=== PATIENT | female | born 1940 | race Caucasian/White ===

== ENCOUNTER → 2017-10-07 | Outpatient (CLI) | payer MEDICARE, OTHER ==
--- NOTE | 2017-10-07 13:30 | RADIOLOGY REPORT (SQ) ---
EXAM DESCRIPTION: U/S RETROPERITON (RENAL/AORTA) COMPLETED DATE/TIME: 10/07/2017 12:15 pm REASON FOR STUDY: N28.1 CYST OF KIDNEY, ACQUIRED N28.1 CYST OF KIDNEY, ACQUIRED COMPARISON: None. TECHNIQUE: Dynamic and static grayscale images acquired of the kidneys and bladder and recorded on P ACS. Additional selected color Doppler and spectral images recorded. LIMITATIONS: None. FINDINGS: RIGHT KIDNEY: Normal size, 11 cm in length. Normal echogenicity. No hydronephrosis. No dayan cifications. There is a 5 cm solid mass along the right lower pole kidney worrisome for primary tumor. LEFT KIDNEY: Normal size, 10 cm in length. Normal echogenicity. No solid or suspicious masses. No hy dronephrosis. No calcifications. BLADDER: No masses. OTHER FINDINGS: No other significant finding. IMPRESSION: 5 cm solid mass right lower pole kidney worrisome for primary tumor. No hydronephrosis or urinary calculi. COMMENT: Report called to Dr. Alford's nurse, Ha[place], 1320 hours 10/07/2017 TECHNICAL DOCUMENTATION: JOB ID: [id number] [employer]- All Rights Reserved
== END ==
LOC: RAD 11:51
PROVIDERS: ATTEND Internal Medicine
DX: N28.1 Cyst of kidney, acquired (principal)
CPT/HCPCS: 76770

== ENCOUNTER → 2017-11-22 | Outpatient (CLI) | payer MEDICARE, OTHER ==
--- NOTE | 2017-11-22 12:29 | RADIOLOGY REPORT (SQ) ---
EXAM DESCRIPTION: CT ABD/PELVIS NO ORAL OR IV COMPLETED DATE/TIME: 11/22/2017 11:17 am REASON FOR STUDY: R93.8 ABNORMAL FINDINGS ON DIAGNOSTIC IMAGING OF BODY STRUCTURES R93.8 ABNORMAL F INDINGS ON DIAGNOSTIC IMAGING OF BODY STRUCT COMPARISON: Bilateral renal ultrasound 10/07/2017 TECHNIQUE: CT scan of the abdomen and pelvis performed without intravenous or oral contrast. Images reviewed with lung, soft tissue, and bone windows. Reconstructed coronal and sagittal MPR images revi ewed. All images stored on PACS. All CT scanners at this facility use dose modulation, iterative reconstruction, and/or weight based d osing when appropriate to reduce radiation dose to as low as reasonably achievable (ALARA). [facility]: Dose Right [facility]: CareDose [facility]: Dose Right [facility]: Teradose 4D [facility]: Smart YouFig RADIATION DOSE: CT Rad equipment meets quality standard of care and radiation dose reduction techniq ues were employed. CTDIvol: 10.5 mGy. DLP: 564 mGy-cm.mGy. LIMITATIONS: None. FINDINGS: LOWER CHEST: Small hiatal hernia. Lung bases are clear. NON-CONTRASTED LIVER, SPLEEN, ADRENALS: Evaluation limited by lack of IV contrast. No identified sign ificant masses. PANCREAS: No masses. No peripancreatic inflammatory changes. GALLBLADDER: Surgically absent RIGHT KIDNEY AND URETER: A 5 cm solid mass is present in the right lower pole kidney worrisome for tu mor. This is best shown on axial image 44 and coronal image 48. Elsewhere in the right kidney, a 3 cm and 1.6 cm right upper pole cyst are present. No significant calcifications. No hydronephrosis or hydroureter. LEFT KIDNEY AND URETER: No suspicious masses. Assessment limited by lack of IV contrast. 5 cm left u pper pole renal cortical cyst. No significant calcifications. No hydronephrosis or hydroureter. AORTA AND RETROPERITONEUM: No aneurysm. No retroperitoneal masses or adenopathy. BOWEL AND PERITONEAL CAVITY: No obvious masses or inflammatory changes. No free fluid. APPENDIX: Surgically absent PELVIS, BLADDER, AND ABDOMINAL WALL:No abnormal masses. No free fluid. Bladder normal. Post hysterec mamie BONES: No significant findings. OTHER: No other significant finding. IMPRESSION: 5 cm solid mass right lower pole kidney worrisome for primary malignancy COMMENT: Quality ID # [id number]: Final reports with documentation of one or more dose reduction techniques (e.g., Automated exposure control, adjustment of the mA and/or kV according to patient size, use of iterative reconstruction technique) TECHNICAL DOCUMENTATION: JOB ID: [id number] [employer]- All Rights Reserved Reading location - IP/workstation name: [email or web address]
== END ==
LOC: RAD 11:13
PROVIDERS: ATTEND Internal Medicine
DX: R93.8 Abnormal findings on diagnostic imaging of other specified body structures (principal); N28.89 Other specified disorders of kidney and ureter
CPT/HCPCS: 74176